=== PATIENT | female | born 1975 | race Caucasian/White ===

== ENCOUNTER 2020-09-27 07:56 | Day surgery (SDCO) | payer OTHER ==
[~2020-09-27] VITALS: Ht 160 cm; Wt 93.4 kg
[~2020-09-27 07:56] MED LIST: CLARITIN10 MG PO; FLONASE ALLER15.8 ML; LEVOTHYROXINE150 MC1 PO; LISINOPRIL30 MG PO; OMEPRAZOLE40 MG PO
[2020-09-27 08:18] LABS: HCG (URINE) SCREEN NEGATIVE (NEGATIVE)
[2020-09-27 09:08] LABS: MCH 21.4 pg (25.0-31.0); MCHC 29.4 g/dL (32.0-36.0); MCV 72.6 fL (78.0-100.0); MPV 9.6 fL (6.0-9.5); RBC 4.68 M/uL (4.20-5.40); RDW 18.3 % (11.5-14.0); WBC 16.5 K/uL (4.0-10.5)
[2020-09-27 09:43] LABS: ALBUMIN 3.4 g/dL (3.4-5.0); BILIRUBIN - TOTAL 0.4 mg/dL (0.2-1.0); BUN/CREAT RATIO (CALC) 24.3 RATIO; CREATININE 0.7 mg/dL (0.51-0.95); FT4 (FREE T4) 1.3 ng/dL (0.76-1.46); GLOBULIN (CALCULATION) 3.5 g/dL; TOTAL PROTEIN 6.9 g/dL (6.4-8.2)
[2020-09-27] MEDS ORDERED: IBUPROFEN800 M1 PO (12:42)
[2020-09-27] MEDS ORDERED: ZOFRAN4 M1 PO (12:42)
[2020-09-27] MEDS ORDERED: COLACE100 MG PO (12:42)
[2020-09-27] MEDS ORDERED: PERCOCET 5-3251 EACH PO (12:42)
== END 2020-09-27 14:00 | disposition home or self-care (01) ==
LOC: FSDC 07:56 → FMS 10:00 → FSDC 14:00
PROVIDERS: ADMIT Obstetrics & Gynecology
DX: D25.2 Subserosal leiomyoma of uterus (principal); N85.6 Intrauterine synechiae; N85.8 Other specified noninflammatory disorders of uterus; N93.9 Abnormal uterine and vaginal bleeding, unspecified; N94.6 Dysmenorrhea, unspecified; K46.9 Unspecified abdominal hernia without obstruction or gangrene; E03.9 Hypothyroidism, unspecified; J30.9 Allergic rhinitis, unspecified; M19.90 Unspecified osteoarthritis, unspecified site; I10 Essential (primary) hypertension; D50.0 Iron deficiency anemia secondary to blood loss (chronic); N92.0 Excessive and frequent menstruation with regular cycle; F17.210 Nicotine dependence, cigarettes, uncomplicated; Z88.1 Allergy status to other antibiotic agents; Z88.5 Allergy status to narcotic agent; Z88.8 Allergy status to other drugs, medicaments and biological substances; Z79.899 Other long term (current) drug therapy; Z98.51 Tubal ligation status
CPT/HCPCS: 36415; 80053; 84439; 84443; 84703; 86850; 86900; 86901; 93005; G0378; J1170; J1885; J1956; J2250; J2405; J2704; J2710; J3010; J7120